=== PATIENT | female | born 1970 | race American Indian/Alaskan Native ===

== ENCOUNTER 2016-09-20 07:47 | Outpatient (CLI) | payer BC | END 2016-09-20 07:48 | disposition home or self-care (01) | LOC: MAMMO 07:47 | PROVIDERS: ATTEND Internal Medicine | DX: Z12.31 Encounter for screening mammogram for malignant neoplasm of breast (principal) | CPT/HCPCS: 77067; G0202 ==

== ENCOUNTER 2017-04-13 09:39 | Emergency (ER) | payer BC ==
[2017-04-13] MEDS ORDERED: LOPRESSOR ONE (09:53)
[2017-04-13 10:49] VITALS: BP 113/67
--- NOTE | 2017-04-13 13:44 | Emergency Department Report ---
ED Back Pain/Injury HPI - General Chief Complaint: Back Pain/Injury Stated Complaint: BACK PAIN Source: family Limitations: No Limitations - Related Data Previous Rx's Medication Instructions Recorded Last Taken Type Cyclobenzaprine [Flexeril] 10 mg PO TID PRN #12 tablet 04/13/17 Unknown Rx Prednisone 50 mg PO QAM #5 tablet 04/13/17 Unknown Rx traMADol [Ultram] 50 mg PO Q6HR PRN #20 tablet 04/13/17 Unknown Rx Allergies Allergy/AdvReac Type Severity Reaction Status Date / Time No Known Allergies Allergy Verified 04/13/17 10:43 ED Review of Systems ROS: Stated complaint: BACK PAIN Other details as noted in HPI ED Past Medical Hx - Past Medical History Previous Medical History?: No - Surgical History Additional Surgical History: Hysterectomy - Social History Smoking Status: Never Smoker Substance Use Type: None - Medications Home Medications: Home Medications Medication Instructions Recorded Confirmed Last Taken Type Cyclobenzaprine [Flexeril] 10 mg PO TID PRN #12 tablet 04/13/17 Unknown Rx Prednisone 50 mg PO QAM #5 tablet 04/13/17 Unknown Rx traMADol [Ultram] 50 mg PO Q6HR PRN #20 tablet 04/13/17 Unknown Rx ED Physical Exam - General Limitations: No Limitations ED Course Vital Signs 04/13/17 04/13/17 10:43 14:40 Temperature 98.9 F Pulse Rate 76 Respiratory 18 18 Rate Blood Pressure 113/67 O2 Sat by Pulse 100 Oximetry - Reevaluation(s) Reevaluation #1: 04/13/17 16:16 Patient better after pain medication. Still awaiting UA results ED Medical Decision Making - Lab Data Lab Results 04/13/17 Range/Units 16:13 Urine Color Yellow (Yellow) Urine Turbidity Clear (Clear) Urine pH 7.0 (5.0-7.0) Ur Specific [place] 1.018 (1.003-1.030) Urine Protein <15 mg/dl (Negative) mg/dL Urine Glucose (UA) Neg (Negative) mg/dL Urine Ketones Neg (Negative) mg/dL Urine Blood Neg (Negative) Urine Nitrite Neg (Negative) Urine Bilirubin Neg (Negative) Urine Urobilinogen 2.0 (<2.0) mg/dL Ur Leukocyte Esterase Neg (Negative) Urine WBC (Auto) 5.0 (0.0-6.0) /HPF Urine RBC (Auto) 3.0 (0.0-6.0) /HPF U Epithel Cells (Auto) 12.0 (0-13.0) /HPF Urine Bacteria (Auto) 1+ (Negative) /HPF Urine Mucus Few /HPF History of hysterectomy. - Radiology Data Radiology results: report reviewed CT scan of lumbar spine shows degeneration and SI joint - Medical Decision Making ED Course: Patient here reporting that she is having pain in her lower back with radiating down her right hip around to the front of her right leg. She said she lifted heavy objects yesterday and she felt a pull on the right side. She was not having any loss of bowel or bladder function. Patient is neurologically intact and her back exam is normal. Her pain has been controlled with Decadron 10 mg IM and Toradol [address] scan of the lumbar spine reveal SI joint degeneration otherwise normal. I discussed with patient diagnosis and treatment plan and she voiced understanding. I discussed with her she continues to have back pain she'll need to follow up with orthopedic doctor in 3-5 days. It has control of her bowel and bladder function and discharged home in stable condition with post prescription for Ultram and prednisone. Urinalysis negative and patient had a hysterectomy so no need for urine . Critical care attestation.: If time is entered above; I have spent that time in minutes in the direct care of this critically ill patient, excluding procedure time. ED Disposition Clinical Impression: Degenerative joint disease of sacroiliac joint Lumbar back pain Qualifiers: Chronicity: acute Back pain laterality: right Sciatica presence: with sciatica Sciatica laterality: sciatica of right side Qualified Code(s): M54.41 - Lumbago with sciatica, right side Disposition: DC-01 TO HOME OR SELFCARE Is pt being admited?: No Does the pt Need Aspirin: No Condition: Stable Instructions: Degenerative Disc Disease (ED), Lumbar Radiculopathy (ED), Acute Low Back Pain (ED) Additional Instructions: Please follow up with orthopedic doctor in follow-up for orthopedic doctor with new onset back pain with radiculopathy Please do not drive or operate heavy machinery while taking in Flexeril and her Ultram as this medication will cause drowsiness Rest 72 hours Prescriptions: Cyclobenzaprine [Flexeril] 10 mg PO TID PRN #12 tablet PRN Reason: Muscle Spasm Prednisone 50 mg PO QAM #5 tablet traMADol [Ultram] 50 mg PO Q6HR PRN #20 tablet PRN Reason: Pain Referrals: PRIMARY CAREMD [Primary Care Provider] - 04/16/17 JAVON WHATLEY MD [Staff Physician] - 04/17/17
[2017-04-13] MEDS ORDERED: DECADRON IM ONE (13:59)
[2017-04-13] MEDS ORDERED: TORADOL IM ONE (13:59)
--- NOTE | 2017-04-13 15:01 | Cat Scan Report ---
CT LUMBAR SPINE WITHOUT CONTRAST INDICATION: Lumbar radiculopathy. COMPARISON: None similar. FINDINGS: Noncontrast axial, sagittal and coronal CT reconstructions through the lumbar spine demonstrate normal vertebral body stature and alignment. Preserved disc heights. No large disc protrusion or spinal stenosis suspected. Moderate right and mild left L5-S1 facet arthropathy. Mild bilateral SI joint degenerative spurring as well. CONCLUSION: Lower lumbar and SI joint degenerative changes without acute lumbar CT abnormality, as described. Please correlate. Thank you for the opportunity to participate in this patient's care.
[2017-04-13 16:36] LABS: Bacteria,Urine 1+ /HPF (Negative); Bilirubin,Urine NEG (Negative); Blood,Urine NEG (Negative); Ketones,Urine NEG (Negative); Leukocyte Esterase,Urine NEG (Negative); Mucus,Urine FEW /HPF; Nitrite,Urine NEG (Negative); Protein,Urine <15 mg/dL mg/dL (Negative)
== END 2017-04-13 17:00 | disposition home or self-care (01) ==
LOC: ED 09:39
DX: M47.898 Other spondylosis, sacral and sacrococcygeal region (principal); M54.41 Lumbago with sciatica, right side
CPT/HCPCS: 72131; 96372; 99284; J1100; J1885

== ENCOUNTER 2019-05-23 12:00 | Outpatient (CLI) | payer BC ==
--- NOTE | 2019-05-26 12:51 | Mammography Report ---
DIGITAL BILATERAL DIAGNOSTIC MAMMOGRAM WITH CAD, 05/23/2019 INDICATION: POST CLIP PLACEMENT TECHNIQUE: Digital right mammographic imaging was performed. This examination was interpreted with the benefit of Computer-aided Detection analysis. COMPARISON: 09/20/2016. No recent comparison. Breast Density: The breast is heterogeneously dense, which may obscure small masses. FINDINGS: A right upper outer biopsy clip is new compared to the previous exam. No mass, architectura l distortion or suspicious calcifications. IMPRESSION: No mammographic evidence of malignancy. The biopsy was apparently performed for an ultras ound finding. Follow up recommendation: Clinical follow-up. BI-RADS Category 2: Benign. A "normal" or negative report should not discourage follow up or biopsy of a clinically significant f inding. A written summary of these findings will be mailed to the patient. The patient will be entered into a mammography reporting system which will generate a reminder letter for the patient's next appointmen t at the appropriate interval. According to the [employer], yearly mammograms are recommended starting at age 40 and continuing as long as a woman is in good health. Breast MRI is recommended for women with an preet roximately 20-25% or greater lifetime risk of breast cancer, including women with a strong family his tory of breast or ovarian cancer and women who have been treated for Hodgkin's disease. Signer Name: Shreyas Nguyen MD Signed: 05/26/2019 12:47 PM Workstation Name: [id number]
== END 2019-05-23 12:01 | disposition home or self-care (01) ==
LOC: SPVWC 12:00
PROVIDERS: ATTEND Surgery
DX: Z98.82 Breast implant status (principal)

== ENCOUNTER 2019-05-23 15:01 | Outpatient (CLI) | payer BC | END 2019-05-23 15:02 | disposition home or self-care (01) | LOC: LABHHL 15:01 | PROVIDERS: ATTEND Surgery | DX: N63.10 Unspecified lump in the right breast, unspecified quadrant (principal) | CPT/HCPCS: 88112; 88305 ==